=== PATIENT | female | born 1955 | race Caucasian/White ===

== ENCOUNTER → 2016-09-01 | Outpatient (CLI) | payer BC, OTHER | LOC: RAD 02:41 | DX: Z12.31 Encounter for screening mammogram for malignant neoplasm of breast (principal) ==

== ENCOUNTER → 2017-09-18 | Outpatient (CLI) | payer OTHER | LOC: RAD 01:04 | DX: Z12.31 Encounter for screening mammogram for malignant neoplasm of breast (principal); M85.88 Other specified disorders of bone density and structure, other site; Z78.0 Asymptomatic menopausal state; Z90.12 Acquired absence of left breast and nipple ==

== ENCOUNTER → 2018-09-20 | Outpatient (CLI) | payer OTHER | LOC: RAD 00:58 | DX: Z12.31 Encounter for screening mammogram for malignant neoplasm of breast (principal) ==

== ENCOUNTER → 2019-09-24 | Outpatient (CLI) | payer OTHER | LOC: BC 09-23 13:02 | DX: Z12.31 Encounter for screening mammogram for malignant neoplasm of breast (principal) ==

== ENCOUNTER → 2019-09-30 | Outpatient (CLI) | payer OTHER ==
[~2019-09-30] MED LIST: ALLERGY RELIEF10 MG PO; B COMPLEX1 EACH PO; BIOTIN PO; BUPROPION HCL150 M1 PO; CALCIUM + D3 E1 EACH PO; COLLAGEN PO; COQ-10100 MG PO; FISH OIL 1,001000 M3 PO; GARLIC500 MG PO; GLUCOSAMINE CH1 EA10 PO; JUICE PLUS PO; MAGNESIUM500 MG PO; NASACORT10.8 ML NARES; NORCO 5-325 TA1 EAC1 PO; SINGULAIR 10 MG10 M1 PO; TURMERIC500 M2 PO; VITAMIN C500 M1 PO
== END ==
LOC: BC 09:49
PROVIDERS: ATTEND Obstetrics & Gynecology
DX: R92.0 Mammographic microcalcification found on diagnostic imaging of breast (principal); L90.5 Scar conditions and fibrosis of skin; Z85.3 Personal history of malignant neoplasm of breast

== ENCOUNTER → 2019-10-01 | Outpatient (CLI) | payer OTHER ==
--- NOTE | 2019-10-03 15:08 | PATH ---
[facility] [address] [place] [address] PATHOLOGY RPT PROCEDURE Name: KINSEY RICHARDSONDANICA Parra Room #: REG SALVADOR Albrecht.#: [id number] Admission: 10/01/19 Date of : 57 Discharge: Report #: [id number] Path Case #: [id number] LCA Accession Number: [id number] . 01 Material submitted: . breast - LEFT BREAST CALCIFICATIONS. Modifiers: left . 01 Clinical history: . Left breast calcifications; history of left lumpectomy . 02 Diagnosis: Breast, left subareolar medial, stereotactic needle core biopsy: - INVASIVE, MODERATELY DIFFERENTIATED DUCTAL ADENOCARCINOMA, CECILIA GRADE II OUT OF III MEASURING 2 MM IN GREATEST DIMENSION IN A SINGLE CORE IN CONTIGUOUS LENGTH. - DUCTAL CARCINOMA IN SITU, CRIBRIFORM TYPE AND SOLID TYPE, INTERMEDIATE NUCLEAR GRADE ASSOCIATED WITH COURSE CALCIFICATIONS IN SCATTERED FOCI. (IUV:pit 10/03/2019) QTP 10/03/2019 1042 Local . 02 Comment: Specimen type: Stereotactic needle core biopsy Tumor site: Left subareolar medial Tumor quantitation: 2 mm in greatest dimension Histologic type: Invasive ductal carcinoma Histologic grade: [place] Grade II/III Tubules, nuclei and mitoses: 3, 2 and 1 respectively LVSI: Not identified Microcalcifications: Present in ductal carcinoma insitu Markers: ER, CT, HER-2/SARAH and KI-67 Block: A2 . Co-review: Dr. Nurys Hogue has seen member service representative slides of this case and concurs with my diagnosis. . Findings of this case are communicated to Dr. Won Berg at approximately 10:30 am on 10/03/2019. (IUV:[facility] 10/03/2019) . 02 Electronically signed: . Tamika Schmitz MD, Pathologist NPI- [id number] . 01 Gross description: . The specimen is received in formalin, labeled "elizabeth Rudolph". The specimen is additionally labeled on the requisition as, "left subareolar medial". Received [place] [address] PATHOLOGY RPT PROCEDURE Name: NONA RICHARDSON Room #: REG SALVADOR Clarke#: [id number] Admission: 10/01/19 Date of : 57 Discharge: Report #: [id number] Path Case #: [id number] fibrofatty tissue measuring 3.7 x 1.8 x 0.4 cm in aggregate dimensions. Also received within the specimen containers a plastic cassette containing multiple needle cores of fibrofatty tissue measuring 2.3 x 1.6 x 0.5 cm in aggregate dimensions. The suspect tissue is transferred to cassette A1, with the remaining tissue submitted in cassettes A2 and A3. The cold ischemic time is 2 minutes. The total formalin fixation time is 29 hours and 58 minutes. (CAA; 10/02/2019) QAC/QAC 10/02/2019 1119 Local . 02 Pathologist provided ICD-10: C50.012, D05.12 . 02 CPT . 223464 Specimen Comment: A courtesy copy of this report has been sent to [phone] Specimen Comment: [phone] Specimen Comment: Report sent to / DR MAYFIELD Performed at: [address], [place] [id number] MD Odell Weldon MD Phone: [phone] Performed at: [address] [id number] MD Tamika Schmitz MD Phone: [phone]
== END | disposition home or self-care (01) ==
LOC: BC 12:05
DX: R92.1 Mammographic calcification found on diagnostic imaging of breast (principal); C50.012 Malignant neoplasm of nipple and areola, left female breast; Z98.890 Other specified postprocedural states

== ENCOUNTER → 2019-10-23 | Outpatient (CLI) | payer OTHER ==
[2019-10-23 13:18] LABS: CREATININE 0.8 mg/dL (0.6-1.0)
== END ==
LOC: MRI 12:16 → EDSTATUS 14:58 → MRI 15:22
PROVIDERS: ATTEND Surgery
DX: C50.912 Malignant neoplasm of unspecified site of left female breast (principal)

== ENCOUNTER 2019-10-24 08:37 | Observation (INO) | payer OTHER ==
[~2019-10-24] VITALS: Ht 165.1 cm; Wt 74.8 kg
[~2019-10-24 08:37] MED LIST changes: -NORCO 5-325 TA1 EAC1 PO
[2019-10-24 09:40] VITALS: BP 121/77
[2019-10-24 09:54] LABS: HEMATOCRIT 37.8 % (37.0-47.0); HEMOGLOBIN 12.5 gm/dL (12.0-15.0)
[2019-10-24 16:00] VITALS: BP 113/63
[2019-10-24 16:30] VITALS: BP 132/70
[2019-10-24 17:30] VITALS: BP 142/75
--- NOTE | 2019-10-24 18:20 | NUR ---
ASSUMED CARE OF THE PT AT 0700. PTS PAIN IS CONTROLLED BY PAIN MEDS, SEE EMAR. VALERIA PASCUAL DRAIN ON L SIDE/ OUTPUT MINIMUM. R WRIST IV DRY AND INTACT. PT IS AMBULATORY, BUT FALL PRECAUTIONS IN PLACE WHILE PT IS ON PAIN MEDS.PT IS RA. BED IN THE LOWEST POSITION AND CALL LIGHT IS WITHIN REACH. SCD'S IN PLACE AND GRISEL HOSE. R EAR SCOPE PATCH IN PLACE, NO C/OV N/V. WILL CONTINUE TO MONITOR THE PT.
[2019-10-24 18:35] VITALS: BP 125/64
[2019-10-24 20:15] VITALS: BP 118/72
[2019-10-25 00:25] VITALS: BP 122/70
--- NOTE | 2019-10-25 02:54 | NUR ---
ASSESSED AT START OF SHIFT PT A&OX4. IV INTACT AND FLUIDS INFUISING. DENIES N/V. PAIN MANAGED BY PO AND IV MEDS SEE EMAR. UP AD FABIEN TO THE BATHROOM. SHUBHAM DRAIN INTACT WITH 40CC OUTPUT AT THE START OF SHIFT WILL CONT TO MONITOR. CALL LIGHT IN REACH
[2019-10-25 06:10] VITALS: BP 106/71
--- NOTE | 2019-10-25 07:30 | NUR ---
ASSUMED CARE OF PATIENT ALERT XS4. SITTING UP IN BEDSIDE CHAIR. WAS WALKING HALLS,STATES NEEDS PRN PAIN MED SOON POSSIBLE. PT PLEASANT AND COOPERATIVE WITH CARE.
--- NOTE | 2019-10-25 07:56 | EKG ---
[facility] [address] ELECTROCARDIOGRAM REPORT Name: NONA RICHARDSON Room #: 447-[facility] M..#: [id number] Admission: 10/24/19 Attend Phys: Rj Webster MD Discharge: Date of : 57 Report #: [id number] THIS REPORT FOR: cc: Manuel Ramires MD, Michael J. MD Couchonnal, Luis F. MD ~ THIS REPORT FOR: //name// [facility] Test Date: 2019-10-24 Test Time: 09:32:17 Pat Name: NONA RICHARDSON Department: Room: [facility] Gender: F [employer] Research Associate: NEVAEH : 1955 Requested By: Rj Webster Order Number: [id number] : Lex Erickson Measurements Intervals [place] Rate: 83 P: 45 VA: 182 QRS: -16 QRSD: 94 T: 37 QT: 378 QTc: 445 Interpretive Statements Sinus rhythm Borderline left axis deviation Borderline low voltage, extremity leads Compared to ECG 12/06/2007 12:58:31 No significant changes Electronically Signed On 10-25-2019 7:55:50 CDT by Lex Erickson [email or web address] <ELECTRONICALLY SIGNED> By: Lex Erickson MD 10/25/19 0755 0932 Lex Erickson MD /EPI
[2019-10-25 08:42] VITALS: BP 128/70
--- NOTE | 2019-10-25 10:44 | NUR ---
ASSESSMENT: CM REVIEWED CHART AND SPOKE WITH PATIENT. PT IS ALERT AND ORIENTED X4. PT WAS ADMITTED FOR MASTECTOMY. PT REPORTS SHE LIVES AT HOME WITH FAMILY. PT REPORTS 4 STEPS WITH HANDRAILS TO ENTER HER HOME AND NO STEPS SHE HAS TO USE ONCE INSIDE. PT REPORTS BEING FULLY INDEPENDENT WITH ADLS AND AMBULATION. PT DENIES HAVING ANY DME OR THE NEED FOR IT. PT REPORTS SHE HAD HH YEARS AGO BUT UNSURE THE AGENCY. CM DISCUSSED ROLE. PT STATES SHE WILL HAVE NO NEEDS AT DISCHARGE AND DOES NOT FEEL SHE NEEDS HH OR ANYTHING. PT REPORTS SHE IS ALREADY UP AND WALKING AROUND. PT REPORTS NO NEEDS FROM CM.
[2019-10-25] MEDS ORDERED: NORCO 5-325 TA1 EAC1 PO (11:31)
[2019-10-25 11:44] VITALS: BP 128/70
[2019-10-25 11:46] VITALS: BP 128/70
--- NOTE | 2019-10-25 12:51 | NUR ---
DISCHARGE PAPERS GONE OVER WITH PATIENT SIGNED AND COPY IN CHART. IV ACSESS DCD. SHUBHAM DRAIN EMPTIED HAD 25 CC. PT EDUCATED ON HOW TO DRAIN AND SHE DID RETURN DEMONSTRATION. SUPPLIES SENT HOME WITH HER. THIS NURSE HELPED HER TO GET DRESSED. ALL BELONGINGS PACKED AND SENT WITH PATIENT.PT TO EAT LUNCH HER RIDE ON THE WAY.
[2019-10-25 13:22] VITALS: BP 128/70
--- NOTE | 2019-10-29 17:08 | PATH ---
[facility] [place] [address] PATHOLOGY RPT PROCEDURE Name: AMANDA RICHARDSON Room #: 447-P [facility] Parisa Clarke#: [id number] Admission: 10/24/19 Date of : 57 Discharge: 10/25/19 Report #: [id number] Path Case #: [id number] LCA Accession Number: [id number] . 01 Material submitted: . PART A: breast - LEFT MASTECTOMY. Modifiers: left PART B: lymph node - LEFT AXILLARY SENTINEL LYMPH NODE #1,FS. Modifiers: left . 01 Clinical history: . Recurrent breast cancer in left breast . 02 Frozen section diagnosis: . FROZEN SECTION DIAGNOSIS (Tamika Schmitz MD) . FSB1 and TPB2, left axillary sentinel lymph node, biopsy: - Negative for macrometastatic carcinoma on FSB1 or TPB2 slides. . These findings are discussed with Dr. Rj Webster in OR-2 and a written report is placed in the patient's chart. . Frozen section and touch preparation performed at [facility], [address], [place] [address] . . GROSS DESCRIPTION B. Specimen is received fresh from the OR labeled with the patient's name, and "left axillary sentinel lymph node #1", consists of an oval yellow-moulton lymph node measuring 1.6 x 1.2 x 1 cm. The specimen is bisected to show fatty infiltration along with a thin red parenchyma towards the periphery. Due to the larger size and fatty nature of the specimen, one-half of the specimen is submitted for frozen section as FSB1, the other half of the specimen (not submitted for frozen section) is used for a touch preparation labeled as TPB2 and this portion is submitted for permanent sections only as B2. (IUV:dipti; 10/24/2019) . IZV/QMS . 02 Diagnosis: A. Breast, left breast, left mastectomy: - No residual invasive ductal carcinoma or ductal carcinoma in situ present. - Biopsy cavity associated with a large hematoma measuring 3.6 x 3.3 cm, see comment. - Margins free of malignancy; closest superior margin is 1.1 cm away from hematoma. [address] [address] PATHOLOGY RPT PROCEDURE Name: AMANDA RICHARDSON Room #: 447-P [facility] Parisa Clarke#: [id number] Admission: 10/24/19 Date of : 57 Discharge: 10/25/19 Report #: [id number] Path Case #: [id number] - Skin and nipple showing reactive changes without any evidence of malignancy. . B. Lymph node (1), left axillary sentinel lymph node, biopsy: - Reactive lymph node without isolated tumor cells or micrometastases or macrometastatic carcinoma (0/1). (IUV/db; 10/29/2019) . Surgical Pathology Cancer Case Summary . Protocol posting date: May 2017 . INVASIVE CARCINOMA OF THE BREAST: . Specimen Identification Procedure ___ Total mastectomy (including nipple-sparing and skin-sparing mastectomy) . Specimen Laterality ___ Left . Tumor Size ___ No residual invasive carcinoma in the current specimen ___ Greatest dimension of largest invasive focus is 2 mm in the biopsy ([id number]) . Histologic Type ___ Invasive ductal carcinoma in the biopsy only ([id number]) . Histologic Grade (Odell Histologic Score) Glandular (Acinar)/Tubular Differentiation ___ Score 3 (<10% of tumor area forming glandular/tubular structures) . Nuclear Pleomorphism ___ Score 2 (cells larger than normal with open vesicular nuclei, visible nucleoli, and moderate variability in both size and shape) . Mitotic Rate ___ Score 1 (<3 mitoses per mm2) . Overall Grade ___Grade 2 (scores of 6 or 7) . Tumor Focality ___ Single focus of invasive carcinoma . Ductal Carcinoma In Situ (DCIS) [address] [address] PATHOLOGY RPT PROCEDURE Name: AMANDA RICHARDSON Room #: 447-P DILAN Clarke#: [id number] Admission: 10/24/19 Date of : 57 Discharge: 10/25/19 Report #: [id number] Path Case #: [id number] ___ No residual DCIS in the current specimen ___ Present only in the biopsy sample ___ Negative for extensive intraductal component (EIC) . Tumor Extension Skin ___ Not applicable . Nipple ___ Not applicable . Margins Invasive Carcinoma Margins (required only if residual invasive carcinoma is present in specimen) ___ Cannot be assessed; no residual carcinoma . DCIS Margins (required only if DCIS is present in specimen) ___ Cannot be assessed; no residual DCIS (required only if residual DCIS is present in specimen) . Regional Lymph Nodes ___ Uninvolved by tumor cells Number of Lymph Nodes Examined: 1 Number of [place] Nodes Examined :1 . Treatment Effect ___ No known presurgical therapy . Lymphovascular Invasion ___ Not identified . Dermal Lymphovascular Invasion ___ Not applicable . Pathologic Stage Classification (pTNM, AJCC 8th Edition) Note: Reporting of pT, pN, and (when applicable) pM categories is based on information available to the pathologist at the time the report is issued. . Primary Tumor (Invasive Carcinoma) (pT) ___ pT1a: Tumor >1 mm but <5 mm in greatest dimension (round any measurement >1.0-1.9 mm to 2 mm) . Category (pN) ___ pN0: No regional lymph node metastasis identified . Distant Metastasis (pM) (required only if confirmed pathologically in this case) ___ pMx: Unknown [address] [address] PATHOLOGY RPT PROCEDURE Name: DYLANAMANDA K Room #: 447-P DILAN Clarke#: [id number] Admission: 10/24/19 Date of : 57 Discharge: 10/25/19 Report #: [id number] Path Case #: [id number] . Clinical History The current clinical/radiologic breast findings for which this surgery is performed include: ___ Radiologic finding ___ Calcifications associated within DCIS (noted within the biopsy only) and vessels. LBQ 10/29/2019 1236 Local . 02 Comment: The previous biopsy, [id number], is pulled and re-examined. It confirms the presence of invasive moderately differentiated ductal adenocarcinoma measuring 1 mm, 1.5 mm and 2 mm (three separate foci) in addition to intermediate nuclear grade ductal carcinoma in situ of cribriform type. The sample was obtained for calcifications. Please refer to separate report for details. The entire hematoma or biopsy cavity is submitted for microscopic examination. There is no residual invasive carcinoma or ductal carcinoma in situ identified within the 20 slides examined of the same. Properly controlled immunohistochemical stains are performed on block A5 and included AE1/AE3 as well as CD68. Findings support the final diagnosis rendered. No definite invasive carcinoma is identified within the mastectomy. The same was conveyed to Dr. Rj Webster at approximately 3:30 p.m. on 10/28/2019. . Properly controlled AE1/AE3 immunohistochemical stain is performed on block B1 as well as B2 (sentinel lymph node) and it shows no isolated tumor cells, micrometastases or macrometastatic carcinoma. (IUV/db; 10/29/2019) . 02 Electronically signed: . Tamika Schmitz MD, Pathologist NPI- [id number] . 01 Gross description: . A.The specimen is received in formalin, labeled "Amanda Richardson, left mastectomy" and consists of a 430 g mastectomy specimen oriented with a long stitch lateral, and short superior. The breast tissue measures 15.5 cm L-M, 15.8 cm S-I and 3.7 cm A-P with an anterior pink-moulton skin ellipse measuring 14.5 x 6.8 cm. The skin ellipse displays a curvilinear well healed scar measuring 6.0 cm in length. There is an area of retraction 1 cm medial from the scar. The nipple areolar complex is everted measuring 3.0 x 3.0 cm. Superior is inked blue, inferior green, and posterior black. It is sectioned revealing a previous biopsy cavity filled with clot in the upper inner quadrant measuring 3.6 x 3.3 cm which correlates to the skin retraction. The biopsy cavity is 1.1 cm to superior, 5.0 cm from inferior, and 1.4 cm from posterior. The rest of the parenchyma consists of yellow orange lobulated tissue with 5% or less fibrous [address] [address] PATHOLOGY RPT PROCEDURE Name: AMANDA RICHARDSON Room #: 447-P [facility]..#: [id number] Admission: 10/24/19 Date of : 57 Discharge: 10/25/19 Report #: [id number] Path Case #: [id number] streaks. No distinct masses are identified. Clean Out Driller Helper sections to include the entire previous biopsy periphery are submitted as follows: . A1: Nipple A2: Posterior margin A3-A20: Entire biopsy cavity periphery absent clot A21: Additional upper inner quadrant A22: Lower inner quadrant A23: Upper outer quadrant A24: Lower outer quadrant . The specimen was collected at 1:58 PM on 10/24/2019 and placed in formalin at 2:04 PM. The cold ischemic time is 6 minutes and the total formalin fixation time is greater than 6 hours less than 72 hours. (SDY; 10/25/2019) . . B. SEE GROSS DESCRIPTION DICTATED UNDER FROZEN SECTION DIAGNOSIS. SYU/QMS 10/25/2019 1118 Local . 02 Pathologist provided ICD-10: C50.912, D05.12 . 02 CPT . 206129, 150002, 765135, 571650, [id number], W87809 Specimen Comment: A courtesy copy of this report has been sent to [phone] Specimen Comment: [phone] Specimen Comment: Report sent to / DR MAYFIELD Performed at: [address] [facility] [address], [place], [place] [id number] MD Odell Weldon MD Phone: [phone] Performed at: [address] [facility] [address] [id number] MD Tamika Schmitz MD Phone: [phone]
--- NOTE | 2019-10-30 12:12 | O ---
[facility] [place] [address] OPERATIVE REPORT Name: NONA RICHARDSON Room #: 447-P [facility] Parisa Clarke#: [id number] Admission: 10/24/19 Attend Phys: Rj Webster MD Discharge: 10/25/19 Date of : 57 Report #: [id number] THIS REPORT FOR: cc: Manuel Ramires MD,Manuel Webster,Rj Asencio MD ~ CC: Manuel Webster DATE OF SERVICE: 10/24/2019 PREOPERATIVE DIAGNOSIS: Recurrent left breast cancer. POSTOPERATIVE DIAGNOSIS: Recurrent left breast cancer. PROCEDURE PERFORMED: Left mastectomy and left sentinel node biopsy. COMPLICATIONS: None. ESTIMATED BLOOD LOSS: 20 mL. PROCEDURE NOTE: With the patient under general anesthesia, timeout was performed. IV antibiotic was administered. Left breast was prepped and draped in sterile fashion. An ellipse of skin was drawn around the central portion of the breast, securing it cephalad because of the biopsy site is above the nipple and there was a sizable hematoma there. A superior skin incision was made and the skin flap was created, lifting the skin off the breast along the superficial fascial layer. This was carried up to the chest wall where the breast ended. Inferior skin flap was then created. This was taken down to the chest wall, medially to the sternum, laterally to the latissimus muscle, anterior edge. The breast was then taken off the chest wall. Clips were applied. Perforating vessels were clipped off or suture ligated with 3-0 Vicryl suture. The breast was then divided at the lateral aspect. Most of the pectoralis fascia was removed. The patient's preop MRI did not show any abnormality on the right and there was no residual lesions seen on the left. No evidence of multicentricity. The sentinel node was then biopsied. Using the Neoprobe, the side of the lymph node was found. This was incised into the lymph node was found. There lymph node was about 1.3 cm size node, normal and was soft, mobile. This lymph node was free. Once the node was removed, a count was performed of the node and it showed it was 794. The bed count for 10 seconds only 79. The lymph node was analyzed. On frozen section, there was no evidence of macrometastasis. Hemostasis obtained. Irrigation was obtained. Drain was brought out inferolaterally towards the axilla and then on the upper flap. Drain was sutured with 2-0 silk suture. Hemostasis was excellent. The [address] [address] OPERATIVE REPORT Name: NONA RICHARDSON Room #: 447-P [facility] Parisa Clarke#: [id number] Admission: 10/24/19 Attend Phys: Rj Webster MD Discharge: 10/25/19 Date of : 57 Report #: [id number] tissue was closed with 3-0 PDS. Skin was then closed with 4-0 PDS in running fashion in running subcuticular fashion. Dermabond was applied, 4 x 4 was applied. Tape was applied. The patient tolerated the procedure well and was taken to recovery room. <ELECTRONICALLY SIGNED> By: Rj Webster MD 10/30/19 1212 22 Rj Webster MD /nt
--- NOTE | 2019-10-30 12:12 | H ---
[facility] [place] [address] HISTORY AND PHYSICAL Name: NONA RICHARDSON Room #: 447-P [facility] Parias Clarke#: [id number] Admission: 10/24/19 Attend Phys: Rj Webster MD Discharge: 10/25/19 Date of : 57 Report #: [id number] THIS REPORT FOR: cc: Manuel Ramires MD, Michael J. MD Chu,Rj Asencio MD ~ CC: Manuel Webster PREOPERATIVE DIAGNOSIS: Recurrent left breast cancer. 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 The patient was treated with lumpectomy and radiation. The patient was on tamoxifen for about 3 years. The patient had heavy bleeding with the tamoxifen, had to stop her tamoxifen after 3 years. The patient then had a hysterectomy. The patient recently on 09/24/2019 was found on her mammogram to have a cluster of microcalcification in the superior medial left breast, 2.8 cm from the nipple. Stereotactic breast biopsy was performed. This showed invasive moderately differentiated ductal carcinoma which only measured about 2 mm. There was also DCIS present. The patient had an MRI today, which result is not back yet. The patient wishes to proceed with a mastectomy. This was recommended since she has already had lumpectomy and radiation to the same breast. The patient wished that she is brought in for the procedure. PAST MEDICAL HISTORY: The patient does not have any significant medical issues. No heart disease, no diabetes, no lung disease, no liver disease. No bleeding disorder. No history of blood clot. The patient has a history of seasonal allergies. PAST SURGICAL HISTORY: Lumpectomy on the left breast followed by radiation in 2003; hysterectomy 2007; multiple orthopedic surgeries involving her right knee, right carpal tunnel, right shoulder rotator cuff, right meniscus. Had a total knee replacement in 04/2016. Patient had cataract surgery May of this year. MEDICATIONS: Wellbutrin, calcium, glucosamine, turmeric, Juice Plus omega 3, CoQ10, magnesium, garlic, B vitamin complex, niacin, vitamin C, collagen type 1 and 3 with biotin. ALLERGIES: She does not have any allergies. FAMILY HISTORY: Grandmother on her dad's side had pancreatic cancer. SOCIAL HISTORY: The patient does not smoke or drink. [facility] [address] [place] [address] HISTORY AND PHYSICAL Name: NONA RICHARDSON Room #: 447-P [facility] Parisa Clarke#: [id number] Admission: 10/24/19 Attend Phys: Rj Webster MD Discharge: 10/25/19 Date of : 57 Report #: [id number] REVIEW OF SYSTEMS: Unremarkable. No headache, shortness of breath, chest pain, or palpitation. PHYSICAL EXAMINATION: GENERAL: The patient is a well-nourished female, in no acute distress. She appears to be stated age. HEENT: Pupils react to light. Extraocular muscles are intact. NECK: Soft and supple, no masses, no JVD. LUNGS: Clear to auscultation. HEART: Regular rate and rhythm. No murmur or gallop. ABDOMEN: Soft, nondistended, nontender. No mass. BREASTS: Her left breast does show a significant size hematoma from the stereotactic breast biopsy at the superior medial breast. No axillary adenopathy, no supraclavicular adenopathy. Right breast does not show any palpable mass or skin changes. EXTREMITIES: No cyanosis, clubbing, edema. IMPRESSION: The patient is a 64-year-old with a recurrent breast cancer on the left side. She was treated originally in 2003 for DCIS. She had lumpectomy and radiation treatment. 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 The patient has a small tumor and discussion with her since she has recurrence in the same breast, I am recommending mastectomy probably would be her best option. The patient agrees with this. She at this point does not want to pursue reconstructive surgery. The patient did have an MRI today. The report is pending. The patient will have a sentinel node biopsy. Mastectomy is planned. <ELECTRONICALLY SIGNED> By: Rj Webster MD 10/30/19 1212 19 Rj Webster MD /nt
== END 2019-10-25 13:24 | disposition home or self-care (01) ==
LOC: OR 08:37 → TBA 08:38 → OR 12:09 → TBACV 15:43 → OR 15:43 → 4S 15:55
PROVIDERS: ADMIT Surgery; ATTEND Surgery
DX: Z03.818 Encounter for observation for suspected exposure to other biological agents ruled out (principal); C50.912 Malignant neoplasm of unspecified site of left female breast
CPT/HCPCS: 50010; 50101; 50386; 50417; 51301; 54118; 56524; 56525; 56526; 56805; 62110; 62900; 70005

== ENCOUNTER → 2020-09-25 | Outpatient (CLI) | payer OTHER ==
[~2020-09-25] MED LIST changes: +NORCO 5-325 TA1 EAC1 PO
== END ==
LOC: RAD 08:47 → NUC 08:47
PROVIDERS: ATTEND Obstetrics & Gynecology
DX: Z12.31 Encounter for screening mammogram for malignant neoplasm of breast (principal); M81.0 Age-related osteoporosis without current pathological fracture; Z90.10 Acquired absence of unspecified breast and nipple